=== PATIENT | female | born 1950 | race Caucasian/White ===

== ENCOUNTER → 2016-08-29 | Outpatient (CLI) | payer OTHER ==
--- NOTE | 2016-08-29 14:20 | NM ---
Nuclear Medicine Whole Body Bone Scan Indication: 66-year-old with diffuse osseous metastases on outside CT scan (not available for review ), history of breast cancer Comparison: Outside PA and lateral chest August 21, 2016. Technique: 19.7 mCi technetium 99m MDP were injected intravenously. Delayed images of the skeleton were obtained in anterior and posterior projections. Findings: There is diffuse abnormal uptake throughout the axial and appendicular skeleton, including in the calvarium, ribs, spine, right clavicle, humeri, and proximal femora, with an appearance sugges tive of essentially a superscan (confluent metastases). Renal uptake is slightly diminished, but symm etric. Impression: Diffuse abnormal uptake (suggestive of superscan) with more focal areas of uptake noted a s above, consistent with diffuse confluent metastases.
== END ==
LOC: FIMAGING 10:09
DX: R93.7 Abnormal findings on diagnostic imaging of other parts of musculoskeletal system (principal)
CPT/HCPCS: 78306; A9503

== ENCOUNTER → 2016-09-08 | Outpatient (CLI) | payer OTHER ==
[~2016-09-08] MED LIST: GADOBUTROL 10 ML VIAL IVP ONE
--- NOTE | 2016-09-08 16:24 | MR ---
MRI of the Brain(Without and With Contrast) Contrast: 4 mL intravenous Gadavist without complication. History: Breast cancer with reported diffuse osseous metastases, evaluate for brain metastases Technique: Sagittal and axial T1-weighted images. Axial fast T2 2nd echo, GRE, diffusion and FLAIR im ages. Postgadolinium axial and coronal images. 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 Marrow replacement in the clivus is subtly expans ile posteriorly. The bone marrow of the upper cervical spine is nearly diffusely replaced. There is s mooth, nonnodular, perhaps slightly thickened, uniform enhancement of the dura that may be normal for this patient or reactive to the bone metastases. Doubt that this represents metastatic disease. Is n o abnormal arachnoid or by mouth enhancement. There is no abnormal parenchymal enhancement, nodularit y or mass lesion. Scattered isovolumic nonenhancing T2-weighted hyperintensity in the periventricular and deep white matter, and to a much lesser extent subcortical white matter, is consistent with micr ovascular ischemic change of a nature often seen in middle-aged and elderly patients often hypertensi ve patients.. There is moderate slightly greater than one would expect for age, cerebral atrophy. There is no evidence of mass lesion, hemorrhage, acute infarction or hydrocephalus, metastatic diseas e, or abnormal meningeal enhancement to suggest meningitis. There is no evidence of a chronic subdura l hematoma. The paranasal and mastoid sinuses are normally aerated. Flow-void is present in both cave rnous carotid arteries and in the basilar artery. The craniocervical junction is normal. Impression: 1. No brain parenchymal metastases. Doubt dural metastasis. If clinically indicated, CSF sampling via spinal tap might be complementary. 2. 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 A clival metastasis is slightly expansile .
== END ==
LOC: FIMAGING 13:16
PROVIDERS: ATTEND Internal Medicine Hematology & Oncology
DX: C50.919 Malignant neoplasm of unspecified site of unspecified female breast (principal); C79.51 Secondary malignant neoplasm of bone
CPT/HCPCS: 70553; A9585

== ENCOUNTER 2016-09-21 09:09 | Day surgery (SDC) | payer OTHER ==
[2016-09-21] MEDS ORDERED: FLUMAZENIL 0.5 MG/5 ML MDV IVP ONE (09:26)
[2016-09-21] MEDS ORDERED: NALOXONE HCL 0.4 MG/ML INJ ONE (09:26)
[2016-09-21] MEDS ORDERED: fentaNYL 100 MCG/2 ML INJ ONE (09:27)
[2016-09-21] MEDS ORDERED: MIDAZOLAM 2 MG/2 ML VIAL ONE (09:27)
[2016-09-21] MEDS ORDERED: NS 1,000 ML IV SCH (09:30)
[2016-09-21 09:58] LABS: HEMATOCRIT 33.9 % (38.0-47.0)
[2016-09-21 10:39] LABS: INR 0.95 (0.83-1.16); PROTIME(PATIENT) 12.6 SEC (12.0-15.0)
[2016-09-21] MEDS ORDERED: LIDOCAINE 1% 30 ML SDV ONE (10:56)
[2016-09-21 10:58] LABS: APTT 26.3 SEC (23.0-38.0)
== END 2016-09-21 12:27 | disposition home or self-care (01) ==
LOC: FIMAGING 09:09
PROVIDERS: ATTEND Internal Medicine Hematology & Oncology
PROC: 0QB23ZX Excision of Right Pelvic Bone, Percutaneous Approach, Diagnostic (ICD-10-PCS; principal; 2016-09-21 10:30)
DX: M89.9 Disorder of bone, unspecified (principal); Z85.3 Personal history of malignant neoplasm of breast
CPT/HCPCS: J2250; J2310; J3010

== ENCOUNTER → 2016-12-17 | Outpatient (CLI) | payer OTHER | LOC: FIMAGING 09:56 | PROVIDERS: ATTEND Internal Medicine Hematology & Oncology | DX: C50.912 Malignant neoplasm of unspecified site of left female breast (principal); C79.51 Secondary malignant neoplasm of bone | CPT/HCPCS: 78306; A9503 ==

== ENCOUNTER → 2016-12-22 | Outpatient (CLI) | payer OTHER | LOC: FIMAGING 10:08 | PROVIDERS: ATTEND Internal Medicine Hematology & Oncology | DX: Z12.89 Encounter for screening for malignant neoplasm of other sites (principal); R93.7 Abnormal findings on diagnostic imaging of other parts of musculoskeletal system; C50.912 Malignant neoplasm of unspecified site of left female breast | CPT/HCPCS: 72157; A9585 ==

== ENCOUNTER → 2016-12-29 | Outpatient (CLI) | payer OTHER | LOC: FIMAGING 13:16 | PROVIDERS: ATTEND Internal Medicine Hematology & Oncology | DX: C79.51 Secondary malignant neoplasm of bone (principal); C50.912 Malignant neoplasm of unspecified site of left female breast | CPT/HCPCS: 72158; A9585 ==

== ENCOUNTER → 2017-03-14 | Outpatient (CLI) | payer OTHER, MEDICAID | LOC: FIMAGING 09:33 | PROVIDERS: ATTEND Internal Medicine Hematology & Oncology | DX: C50.912 Malignant neoplasm of unspecified site of left female breast (principal) | CPT/HCPCS: 78306; A9503 ==

== ENCOUNTER → 2017-06-07 | Outpatient (CLI) | payer OTHER, MEDICAID | LOC: FIMAGING 09:57 | PROVIDERS: ATTEND Internal Medicine Hematology & Oncology | PROC: CP1Z1ZZ Planar Nuclear Medicine Imaging of Musculoskeletal System, All using Technetium 99m (Tc-99m) (ICD-10-PCS; principal; 2017-06-07) | DX: C50.912 Malignant neoplasm of unspecified site of left female breast (principal) | CPT/HCPCS: 78306; A9503 ==

== ENCOUNTER → 2017-10-04 | Outpatient (CLI) | payer OTHER, MEDICAID | LOC: FIMAGING 09:52 | PROVIDERS: ATTEND Internal Medicine Hematology & Oncology | DX: R93.7 Abnormal findings on diagnostic imaging of other parts of musculoskeletal system (principal); C50.912 Malignant neoplasm of unspecified site of left female breast | CPT/HCPCS: 78306; A9503 ==

== ENCOUNTER → 2018-05-06 | Outpatient (CLI) | payer OTHER, MEDICAID | LOC: FIMAGING 12:42 | PROVIDERS: ATTEND Nurse Practitioner | DX: C79.51 Secondary malignant neoplasm of bone (principal); C50.919 Malignant neoplasm of unspecified site of unspecified female breast ==

== ENCOUNTER → 2018-05-29 | Outpatient (CLI) | payer OTHER, MEDICAID | LOC: FIMAGING 10:21 | PROVIDERS: ATTEND Nurse Practitioner | DX: C50.912 Malignant neoplasm of unspecified site of left female breast (principal); C79.52 Secondary malignant neoplasm of bone marrow | CPT/HCPCS: 78306; A9503 ==

== ENCOUNTER → 2018-08-18 | Outpatient (CLI) | payer OTHER, MEDICAID | LOC: FIMAGING 09:59 | PROVIDERS: ATTEND Internal Medicine Hematology & Oncology | DX: C50.912 Malignant neoplasm of unspecified site of left female breast (principal); C79.52 Secondary malignant neoplasm of bone marrow | CPT/HCPCS: 78306; A9503 ==

== ENCOUNTER → 2018-09-10 | Outpatient (CLI) | payer OTHER, MEDICAID | LOC: FIMAGING 10:36 | PROVIDERS: ATTEND Nurse Practitioner | DX: C50.912 Malignant neoplasm of unspecified site of left female breast (principal); C79.52 Secondary malignant neoplasm of bone marrow; Z17.0 Estrogen receptor positive status [ER+]; C79.51 Secondary malignant neoplasm of bone; H05.221 Edema of right orbit | CPT/HCPCS: 70553; A9585 ==